=== PATIENT | female | born 1960 | race Caucasian/White ===

== ENCOUNTER 2025-07-22 11:07 | Day surgery (SDC) | payer MEDICARE ==
[2025-07-22] VITALS (24 sets, daily range): BP systolic 106–166; BP diastolic 54–87
[~2025-07-22] VITALS: Ht 165.1 cm; Wt 79.6 kg
[~2025-07-22 11:07] MED LIST: ALBUTEROL0.63 MG/3 INH; ATROVENT HFA12.9 GM INH; FLUT1DIS2 INH
--- NOTE | 2025-07-22 12:11 | NUR ---
07/22/25 1211 Bernabe Dobbs CONFIRMED AND REVIEWED H&P, MEDCICATIONS, ALLERGIES, MEDICAL HISTORY, RESPIRATORY HISTORY, VITAL SIGNS, 3-LEAD EKG, CONSENTS, AND PHYSICIAN ORDERS. PATIENT CONFIRMS NPO STATUS AND AGREES WITH SCHEDULED PROCEDURE. MONITOR INTACT WITH CONTINUOUS PULSE OXIMETRY, CAPNOGRAPHY, 3-LEAD EKG, INTERMITTENT BP. SUPPLEMENTAL O2 TO BE TITRATED THROUGHOUT PROCEDURE TO MAINTAIN O2 SATURATION ABOVE 90%. PATIENT DETERMINED TO BE ASA APPROPRIATE FOR PROPOFOL SEDATION PRIOR TO START OF PROCEDURE BY DR. BRISCOE
[2025-07-22] MEDS ORDERED: Midazolam HCl 1MG / ML 2ML Vial ONE (12:28)
--- NOTE | 2025-07-22 13:22 | NUR ---
Discharge instructions reviewed with patient. Patient verbalizes understanding. Copy given to patient to take home. Patient up to Ambulate independently. Gait steady. Discharged via wheelchair to private car for ride home.
== END 2025-07-22 23:00 | disposition home or self-care (01) ==
LOC: ORSCMMR 11:07 → ORD 12:00 → ORSCMMR 23:00
DX: Z12.11 Encounter for screening for malignant neoplasm of colon (principal); D12.4 Benign neoplasm of descending colon; K63.5 Polyp of colon; D3A.026 Benign carcinoid tumor of the rectum; Z80.0 Family history of malignant neoplasm of digestive organs; Z86.0100 Personal history of colon polyps, unspecified; J44.9 Chronic obstructive pulmonary disease, unspecified; Z79.899 Other long term (current) drug therapy; F17.210 Nicotine dependence, cigarettes, uncomplicated
CPT/HCPCS: 88305; J2250; J2704; J7120